=== PATIENT | female | born 1955 | race Caucasian/White ===

== ENCOUNTER → 2021-04-16 | Outpatient (CLI) | payer MEDICARE ==
[2021-04-25 09:07] LABS: 6-ACETYLMORPHINE Not Detected (.)
== END ==
LOC: LAB 10:23 → LAB SHORT 10:23
PROVIDERS: Family Medicine
DX: Z79.899 Other long term (current) drug therapy (principal)
CPT/HCPCS: G0480

== ENCOUNTER → 2021-11-30 | Outpatient (CLI) | payer MEDICARE ==
[~2021-11-30] MED LIST: HYDROCODONE-AC1 EAC7 PO; MORP15ER PO; Robaxin750 MG PO; TRAZ50 PO; [UNRECOGNIZED DRUG - CODE] PO
== END | disposition home or self-care (01) ==
LOC: LAB 16:14 → LAB SHORT 16:14
PROVIDERS: Family Medicine
DX: Z51.81 Encounter for therapeutic drug level monitoring (principal); Z79.899 Other long term (current) drug therapy
CPT/HCPCS: G0480

== ENCOUNTER → 2022-03-01 | Outpatient (CLI) | payer MEDICARE | END | disposition home or self-care (01) | LOC: LAB SHORT 14:55 → LAB 14:55 | PROVIDERS: Family Medicine | DX: Z51.81 Encounter for therapeutic drug level monitoring (principal); Z79.899 Other long term (current) drug therapy | CPT/HCPCS: G0480 ==

== ENCOUNTER 2022-03-20 11:14 | Emergency (ER) | payer MEDICARE ==
[~2022-03-20] VITALS: Ht 162.6 cm; Wt 72.6 kg
[2022-03-20] MEDS ORDERED: TRAZ50 PO (11:50)
[2022-03-20] MEDS ORDERED: [UNRECOGNIZED DRUG - CODE] PO (11:50)
[2022-03-20] MEDS ORDERED: HYDROCODONE-AC1 EAC7 PO (11:50)
[2022-03-20] MEDS ORDERED: Robaxin750 MG PO (13:36)
[2022-03-20] MEDS ORDERED: MORP15ER PO ×2 (13:36→13:37)
== END 2022-03-20 14:56 | disposition home or self-care (01) ==
LOC: ER 11:14
DX: M48.54XA Collapsed vertebra, not elsewhere classified, thoracic region, initial encounter for fracture (principal); Z87.891 Personal history of nicotine dependence; Z88.2 Allergy status to sulfonamides; Z88.1 Allergy status to other antibiotic agents
CPT/HCPCS: 72070; A9270; J1885; J2270

== ENCOUNTER → 2022-06-01 | Outpatient (CLI) | payer MEDICARE, OTHER | END | disposition home or self-care (01) | LOC: LAB SHORT 18:36 | PROVIDERS: Family Medicine | DX: Z51.81 Encounter for therapeutic drug level monitoring (principal); R30.9 Painful micturition, unspecified; Z79.899 Other long term (current) drug therapy | CPT/HCPCS: 87077; 87086; 87186; G0480 ==

== ENCOUNTER → 2022-09-20 | Outpatient (CLI) | payer MEDICARE, OTHER | END | disposition home or self-care (01) | LOC: LAB 13:50 → LAB SHORT 13:50 | PROVIDERS: Family Medicine | DX: Z51.81 Encounter for therapeutic drug level monitoring (principal); Z79.899 Other long term (current) drug therapy | CPT/HCPCS: G0480 ==

== ENCOUNTER → 2023-01-05 | Outpatient (CLI) | payer MEDICARE, OTHER | END | disposition home or self-care (01) | LOC: LAB SHORT 14:33 → LAB 14:33 | PROVIDERS: Family Medicine | DX: Z51.81 Encounter for therapeutic drug level monitoring (principal); Z79.899 Other long term (current) drug therapy | CPT/HCPCS: G0480 ==

== ENCOUNTER → 2023-03-01 | Outpatient (CLI) | payer MEDICARE, OTHER | END | disposition home or self-care (01) | LOC: LAB 17:40 → LAB SHORT 17:40 | PROVIDERS: Family Medicine | DX: Z51.81 Encounter for therapeutic drug level monitoring (principal); Z79.899 Other long term (current) drug therapy | CPT/HCPCS: G0480 ==

== ENCOUNTER → 2023-05-19 | Outpatient (CLI) | payer MEDICARE, OTHER ==
[~2023-05-19] MED LIST changes: +AZIT500 PO; +Acetaminophen325 M1 PO; +DULERA 100 MCG/13 GM INH; +PANT40 PO; +PRED20 PO; +Prednisone10 MG PO; +TRAZ100 PO; +Ventolin/Prove6.7 GM INH
== END ==
LOC: LAB SHORT 16:11 → LAB 16:11
PROVIDERS: Family Medicine
DX: Z51.81 Encounter for therapeutic drug level monitoring (principal); Z79.899 Other long term (current) drug therapy
CPT/HCPCS: G0480

== ENCOUNTER 2023-06-06 01:59 | Day surgery (SDC) | payer MEDICARE, OTHER ==
[2023-06-06 14:58] VITALS: BP 105/77
== END 2023-06-06 15:28 | disposition home or self-care (01) ==
LOC: ATC 01:59
DX: D50.9 Iron deficiency anemia, unspecified (principal); G89.29 Other chronic pain; K21.9 Gastro-esophageal reflux disease without esophagitis; J18.9 Pneumonia, unspecified organism
CPT/HCPCS: 96365; J1756

== ENCOUNTER 2023-06-28 01:42 | Day surgery (SDC) | payer MEDICARE, OTHER ==
[2023-06-28 14:18] VITALS: BP 127/91
== END 2023-06-28 13:59 | disposition home or self-care (01) ==
LOC: ATC 01:42
DX: D50.9 Iron deficiency anemia, unspecified (principal); G89.4 Chronic pain syndrome; K21.9 Gastro-esophageal reflux disease without esophagitis; M19.279 Secondary osteoarthritis, unspecified ankle and foot; Z79.899 Other long term (current) drug therapy; Z88.2 Allergy status to sulfonamides
CPT/HCPCS: 96365; J1756

== ENCOUNTER 2023-07-05 02:32 | Day surgery (SDC) | payer MEDICARE, OTHER ==
[2023-07-05 14:35] VITALS: BP 113/80
== END 2023-07-05 15:03 | disposition home or self-care (01) ==
LOC: ATC 02:32
DX: D50.9 Iron deficiency anemia, unspecified (principal); Z88.2 Allergy status to sulfonamides; Z88.1 Allergy status to other antibiotic agents; F41.9 Anxiety disorder, unspecified; F32.A Depression, unspecified; Z79.899 Other long term (current) drug therapy; G89.29 Other chronic pain; M54.50 Low back pain, unspecified
CPT/HCPCS: 96365; J1756

== ENCOUNTER 2023-08-14 10:03 | Emergency (ER) | payer MEDICARE, OTHER ==
[~2023-08-14] VITALS: Ht 162.6 cm; Wt 68.0 kg
[2023-08-14 10:52] LABS: Source, Urine Clean Catch
[2023-08-14 11:12] LABS: Appearance, Urine Cloudy (Clear); Bilirubin, Urine Neg (Neg); Blood, Urine 4+ (Neg); Color, Urine Yellow (P-Yellow); Glucose Qualitative, Urine Neg (Neg); Ketones, Urine Neg (Neg); Leukocyte Esterase, Urine 3+ (Neg); Nitrite, Urine Pos (Neg); Protein, Urine 2+ (Neg); Specific Gravity, Urine 1.015 (1.003-1.022); Urobilinogen, Urine 1+ (Normal); pH, Urine 6.5 (5.0-8.0)
[2023-08-14 11:23] LABS: Squamous Epithelial Cells Rare /hpf (Few)
[2023-08-14 11:24] LABS: White Blood Cells, Urine 25-50 /hpf (0-5)
[2023-08-14 11:25] LABS: Bacteria Mod /hpf; Transitional Epithelial Cells Rare /hpf (0-Rare)
[2023-08-14] MEDS ORDERED: NITR100CA PO (11:51)
[2023-08-14] MEDS ORDERED: PHENA200 PO (11:51)
[2023-08-14 12:05] VITALS: BP 111/86
== END 2023-08-14 12:07 | disposition home or self-care (01) ==
LOC: ER 10:03
PROVIDERS: Emergency Medicine
DX: N39.0 Urinary tract infection, site not specified (principal); M81.0 Age-related osteoporosis without current pathological fracture; Z87.891 Personal history of nicotine dependence; Z79.891 Long term (current) use of opiate analgesic; Z79.899 Other long term (current) drug therapy; Z88.2 Allergy status to sulfonamides
CPT/HCPCS: 81001; 87077; 87086; 87186; 99283; A9270

== ENCOUNTER → 2023-09-15 | Outpatient (CLI) | payer MEDICARE, OTHER ==
[~2023-09-15] MED LIST changes: +NITR100CA PO; +PHENA200 PO
== END ==
LOC: LAB SHORT 11:55 → LAB 11:55
DX: N30.10 Interstitial cystitis (chronic) without hematuria (principal)
CPT/HCPCS: 87077; 87086; 87186

== ENCOUNTER 2024-03-01 05:21 | Inpatient (IN) | payer MEDICARE, OTHER ==
[2024-03-01] VITALS (21 sets, daily range): BP systolic 78–127; BP diastolic 50–88
[~2024-03-01] VITALS: Ht 162.6 cm; Wt 75.6 kg
[2024-03-01] MEDS ORDERED: NS 1,000 ML IV SCH ×3 (06:20→18:50)
[2024-03-01 06:22] LABS: BASOPHILS ABSOLUTE AUTO 0.03 K/mm3 (0.00-0.23); BASOPHILS PERCENT AUTO 0 % (0-2); Hematocrit 37.9 % (33.0-51.0); Hemoglobin 11.8 g/dL (11.5-16.0); LYMPHOCYTES ABSOLUTE AUTO 0.77 K/mm3 (0.84-5.20); LYMPHOCYTES PERCENT AUTO 8 % (21-46); MONOCYTES ABSOLUTE AUTO 0.92 K/mm3 (0.16-1.47); MONOCYTES PERCENT AUTO 10 % (4-13); Mean Corpuscular HGB 28.8 pg (26.0-34.0); Mean Corpuscular HGB Conc 31.1 g/dL (31.5-36.5); Mean Corpuscular Volume 92 fL (80-100); Platelet Count 173 K/mm3 (150-400); RDW Coefficient Variation 13.2 % (11.7-14.2); RDW Standard Deviation 44.9 fL (35.1-46.3); White Blood Cell Count 9.17 K/mm3 (4.00-11.30)
[2024-03-01 06:25] LABS: EOSINOPHILS ABSOLUTE AUTO 0.01 K/mm3 (0.00-0.68); EOSINOPHILS PERCENT AUTO 0 % (0-6); IMMATURE GRAN ABSOLUTE AUTO 0.04 K/mm3 (0.00-0.10); IMMATURE GRAN PERCENT AUTO 0 % (0-1); NEUTROPHILS PERCENT AUTO 81 % (41-73)
[2024-03-01 06:45] LABS: Albumin, Blood 2.4 g/dL (3.4-5.0); Albumin/Globulin Ratio 0.5 (0.8-1.8); Bilirubin, Total 0.5 mg/dL (0.1-1.0); Bun/Creatinine Ratio 18.1 (12.0-20.0); Calcium, Blood 9.5 mg/dL (8.5-10.1); Creatinine, Blood 2.82 mg/dL (0.40-1.00); Globulin, Blood 4.5 g/dL (2.2-4.0); Potassium, Blood 3.2 mmol/L (3.5-5.5); Total Protein, Blood 6.9 g/dL (6.4-8.2)
[2024-03-01 07:15] LABS: BAND PERCENT MAN 5 % (0-8); BASOPHILS PERCENT MAN 0 % (0-2); EOSINOPHILS PERCENT MAN 0 % (0-6); LYMPHOCYTES ABSOLUTE MAN 1.28 K/mm3 (0.84-5.20); LYMPHOCYTES PERCENT MAN 14 % (21-46); MONOCYTES ABSOLUTE MAN 0.64 K/mm3 (0.16-1.47); MONOCYTES PERCENT MAN 7 % (4-13); NEUTROPHILS ABSOLUTE MAN 7.24 K/mm3 (1.96-9.15); SEG NEUTROPHILS PERCENT MAN 74 % (41-73); TOTAL CELLS COUNTED 100
[2024-03-01 08:31] LABS: Source, Urine Clean Catch
[2024-03-01 08:33] LABS: Appearance, Urine Hazy (Clear); Bilirubin, Urine Neg (Neg); Blood, Urine 5+ (Neg); Color, Urine Yellow (P-Yellow); Glucose Qualitative, Urine Neg (Neg); Ketones, Urine Neg (Neg); Leukocyte Esterase, Urine 3+ (Neg); Nitrite, Urine Pos (Neg); Protein, Urine 3+ (Neg); Urobilinogen, Urine NORM (Normal)
[2024-03-01 08:40] LABS: Bacteria Many /hpf; Squamous Epithelial Cells Few /hpf (Few); White Blood Cells, Urine TNTC /hpf (0-5)
[2024-03-01] MEDS ORDERED: HYDROcodone 10-APAP 325 TAB PO PRN (08:40)
[2024-03-01 08:45] LABS: U Amphetamine Screen Not Detected; U Barbituate Screen Not Detected; U Benzodiazapine Screen Not Detected; U Buprenorphine Screen Not Detected; U Cannabinoids Screen Not Detected; U Cocaine Screen Not Detected; U Methadone Screen Not Detected; U Methamphetamine Screen Not Detected; U Opiates Screen DETECTED; U Oxycodone Screen Not Detected; U Phencyclidine Screen Not Detected
[2024-03-01] MEDS ORDERED: Sertraline HCl 100 MG Tab PO SCH (09:00)
[2024-03-01] MEDS ORDERED: Mometasone Furoate Inhaler 220 mcg 14 ACT INH SCH (09:15)
[2024-03-01] MEDS ORDERED: NS 1,000 ML IV ONE (11:20)
[2024-03-01] MEDS ORDERED: Acetaminophen 325 MG TABLET PO PRN (11:20)
[2024-03-01] MEDS ORDERED: CefTRIAXone Sodium 1,000 MG in NS 100 ML IV SCH (12:00)
--- NOTE | 2024-03-01 15:23 | NUR ---
SPOKE WITH DR PANDYA ABOUT B/P 80/61, RETAKE 85/50. ORDERS TO BOLUS ANOTHER 500 ML'S NS.
[2024-03-01] MEDS ORDERED: NS 500 ML IV ONE ×2 (15:30→15:55)
--- NOTE | 2024-03-01 16:38 | NUR ---
B/P AFTER 1000 ML BOLUS IS 86/56. PATIENT FEELING VERY UNWELL WITH HEADACHE AND DIZZINESS. SR ON TELE IN THE 8O'S, TEMP NOW WNL. DR PANDYA NOTIFIED AND ORDERS RECEIVED TO TRANSFER PATIENT TO ICU. CHARGE NURSE NOTIFIED.
--- NOTE | 2024-03-01 17:30 | NUR ---
PATIENT TRANSFERRED FROM [facility] TO ICU 3, REPORT CALLED TO AVA.
--- NOTE | 2024-03-01 17:34 | NUR ---
LACIE ARRIVED TO ICU-3 AT 1720 WITH TIRN AND CPT CLARK. PT ALERT AND ORIENTED, ANSWERING QUESTIONS, ASKING FOR WATER AND FOOD. PT'S BP MAP >65 AT THIS TIME. TEMP 96.5, HEART RATE SINUS 80'S. LUNGS CLEAR AFTER BOLUSES OF FLUID, SKIN WARM/DRY. MEADOWS TO GRAVITY DRAINAGE WITH JÚNIOR RETURN.
--- NOTE | 2024-03-01 18:51 | NUR ---
PT TOOK IN SOME FOOD, C/O BEING COLD, WARM BLANKETS AND SLIPPERS GIVEN. SCD'S PLACED. PT DOZES IN AND OUT. IV FLUIDS CONTINUE,LEVOPHED HAS NOT BEEN STARTED YET. AVAILABLE. PT HAS CALL LIGHT IN REACH.
--- NOTE | 2024-03-01 19:17 | NUR ---
PT INSISTENT ON GETTING UP TO THE BSC, SHE IS SLIGHTLY UNSTEADY, NEEDS GUIDANCE. VERY SHORT OF BREATH ON RETURN, ASKED FOR HER "BREATHER IN HER PURSE".
[2024-03-01] MEDS ORDERED: Ipratropium/Albuterol SulF 2.5-0.5MG/3 ML Amp INH SCH (19:35)
[2024-03-01] MEDS ORDERED: Albuterol 2.5 MG/3 ML VIAL INH PRN (19:35)
--- NOTE | 2024-03-01 20:00 | NUR ---
ASSUMED CARE OF PT AT 1900. REPORT RECEIVED AT BEDSIDE. PT PRESENTS IN BED. SLEEPING ALTHOUGH AWAKENS WITH REPORT BEING GIVEN. INTERJECTS WHEN DISCUSSING WHAT PT TAKES AT HOME FOR PAIN IN KNEE. EDUCATION TO MEDS GIVEN TO PT. PT REMAINS OFF LEVOPHED AT THIS TIME. HAS BEEN MAINTAINING MAP > 65. WILL MONITOR. PT HAS NO COMPLAINTS OF VERTIGO AT THIS TIME. IS ABLE TO MOVE ABOUT IN BED ON HER. WILL REVIEW CHART AND PLAN OF CARE FOR THIS PT.
[2024-03-02] VITALS (21 sets, daily range): BP systolic 90–130; BP diastolic 60–88
[2024-03-02 03:29] LABS: Hematocrit 30.8 % (33.0-51.0); Hemoglobin 9.8 g/dL (11.5-16.0); Mean Corpuscular HGB 29.4 pg (26.0-34.0); Mean Corpuscular HGB Conc 31.8 g/dL (31.5-36.5); Mean Corpuscular Volume 93 fL (80-100); Mean Platelet Volume 9.9 fL (9.1-12.4); Platelet Count 155 K/mm3 (150-400); RDW Coefficient Variation 13.6 % (11.7-14.2); RDW Standard Deviation 46.9 fL (35.1-46.3); Red Blood Cell Count 3.33 M/mm3 (3.80-5.20)
[2024-03-02 03:48] LABS: Albumin, Blood 1.7 g/dL (3.4-5.0); Albumin/Globulin Ratio 0.5 (0.8-1.8); Bilirubin, Total 0.5 mg/dL (0.1-1.0); Bun/Creatinine Ratio 22.5 (12.0-20.0); Calcium, Blood 8.2 mg/dL (8.5-10.1); Creatinine, Blood 1.78 mg/dL (0.40-1.00); Globulin, Blood 3.7 g/dL (2.2-4.0); Potassium, Blood 3.2 mmol/L (3.5-5.5); Total Protein, Blood 5.4 g/dL (6.4-8.2)
[2024-03-02 03:49] LABS: BAND PERCENT MAN 17 % (0-8); BASOPHILS PERCENT MAN 0 % (0-2); EOSINOPHILS PERCENT MAN 0 % (0-6); LYMPHOCYTES PERCENT MAN 8 % (21-46); MONOCYTES ABSOLUTE MAN 0.79 K/mm3 (0.16-1.47); MONOCYTES PERCENT MAN 9 % (4-13); SEG NEUTROPHILS PERCENT MAN 66 % (41-73); TOTAL CELLS COUNTED 100
[2024-03-02] MEDS ORDERED: Potassium Chloride 40 MEQ in NS 250 ML IV ONE (05:00)
--- NOTE | 2024-03-02 05:20 | NUR ---
PT HAS BEEN MEDICATED AGAIN WITH TYLENOL FOR LOW GRADE FEVER OF 100.9. PT MOVES HERSELF INDEPENDENTLY IN BED. HAS HAD QUANTITY SUFFICIENT URNINE OUTPUT PER CATHETER. POTASSIUM BEING REPLETED THIS AM FOR VALUE OF 3.2. PT HAS VOICED NO COMPLAINTS THROUGHOUT THE NIGHT. WILL CONTINUE TO MONITOR PT, AND WILL REPORT OFF TO ONCOMING RN.
[2024-03-02] MEDS ORDERED: Pantoprazole Sodium 40 MG Tab PO SCH (06:00)
--- NOTE | 2024-03-02 08:25 | NUR ---
ASSUMED CARE BEDSIDE REPORT FROM ROGER CARLSON AT 0700. PT RESTING IN BED. A&O X 4. FOLLOWS COMMANDS. C/O AMAYA, 04/03. MEDICATED c TYLENOL ORDERED. LUNGS CLEAR, ON RA. SR, RATE 90'S. BP STABLE. PT P/W/D. IVF AND KCL INFUSING. ABD ROUND, SOFT, NON TENDER, BT X 4. TOLERATING PO WELL. MEADOWS REMOVED, STANDBY ASSIST TO JESUS IN ROOM. PT PCU STATUS. WILL CONTINUE PLAN OF CARE.
[2024-03-02] MEDS ORDERED: Midodrine 5 MG Tab PO SCH (09:00)
[2024-03-02] MEDS ORDERED: Heparin Sodium,Porcine 5,000 UNIT/0.5 ML SDV SC SCH (09:00)
--- NOTE | 2024-03-02 17:36 | NUR ---
SHIFT SUMMARY NO ACUTE CHANGES. PT PCU STATUS. A&OX 4. FOLLOWS COMMANDS. ABLE TO MAKE NEEDS KNOWN. LUNGS CLEAR. SR, RATE 90-100'S. BP STABLE. AFEBRILE. ABD ROUND, SOFT, NON TENDER, BT X 4. POOR APPETITE. DISLIKES FOOD. ENCOURAGED MENU SELECTION. MEADOWS REMOVED, URINARY URGENCY, INCONTINENT VOIDS. ATTENDS IN PLACE. STANDBY ASSIST TO JESUS IN ROOM. IVF INFUSING, 125 ML/HR. WILL CONTINUE PLAN OF CARE UNTIL REPORT TO ONCOMING NURSE.
--- NOTE | 2024-03-02 20:00 | NUR ---
ASSUMED CARE OF PT AT 1900. REPORT RECEIVED AT BEDSIDE. PT PRESENTS IN BED. ALERT AND ORIENTED. PLEASANT AND COOPERATIVE WITH CARE AND ASSESSMENT. NO COMPLAINTS AT THIS TIME. TEM 99.3. PT KEEPS EXTRA BLANKETS ON BED. WILL REVIEW CHART AND PLAN OF CARE FOR THIS PT.
--- NOTE | 2024-03-02 23:39 | NUR ---
PT MEDICATD WITH TYLENOL FOR COMPLAINT HEADACHE. THIS AFFECTIVE. PT HAS BEEN INDEPENDENT IN BED AND WHEN UP NEEDS SOME ASSIST WITH CORDS.
[2024-03-03] VITALS (7 sets, daily range): BP systolic 109–142; BP diastolic 71–85
[2024-03-03 03:51] LABS: BASOPHILS ABSOLUTE AUTO 0.05 K/mm3 (0.00-0.23); BASOPHILS PERCENT AUTO 1 % (0-2); EOSINOPHILS ABSOLUTE AUTO 0.06 K/mm3 (0.00-0.68); EOSINOPHILS PERCENT AUTO 1 % (0-6); Hematocrit 32.6 % (33.0-51.0); Hemoglobin 10.3 g/dL (11.5-16.0); IMMATURE GRAN ABSOLUTE AUTO 0.14 K/mm3 (0.00-0.10); IMMATURE GRAN PERCENT AUTO 1 % (0-1); LYMPHOCYTES ABSOLUTE AUTO 1.25 K/mm3 (0.84-5.20); LYMPHOCYTES PERCENT AUTO 12 % (21-46); MONOCYTES ABSOLUTE AUTO 1.02 K/mm3 (0.16-1.47); MONOCYTES PERCENT AUTO 10 % (4-13); Mean Corpuscular HGB 29.5 pg (26.0-34.0); Mean Corpuscular HGB Conc 31.6 g/dL (31.5-36.5); Mean Corpuscular Volume 93 fL (80-100); Mean Platelet Volume 10.1 fL (9.1-12.4); NEUTROPHILS ABSOLUTE AUTO 8.23 K/mm3 (1.96-9.15); NEUTROPHILS PERCENT AUTO 77 % (41-73); Platelet Count 172 K/mm3 (150-400); RDW Coefficient Variation 14.4 % (11.7-14.2); Red Blood Cell Count 3.49 M/mm3 (3.80-5.20); White Blood Cell Count 10.75 K/mm3 (4.00-11.30)
[2024-03-03 04:23] LABS: Albumin, Blood 1.7 g/dL (3.4-5.0); Albumin/Globulin Ratio 0.4 (0.8-1.8); Bilirubin, Total 0.5 mg/dL (0.1-1.0); Bun/Creatinine Ratio 21.8 (12.0-20.0); Calcium, Blood 9.2 mg/dL (8.5-10.1); Creatinine, Blood 1.47 mg/dL (0.40-1.00); Potassium, Blood 3.8 mmol/L (3.5-5.5); Total Protein, Blood 5.7 g/dL (6.4-8.2)
--- NOTE | 2024-03-03 06:07 | NUR ---
SHIFT SUMMARY PATIENT ARRIVED FROM ICU THIS SHIFT. ALERT AND ORIENTED, COOPERATIVE WITH CARE, ABLE TO APPROPRIATELY EXPRESS NEEDS. CALL LIGHT WITHIN REACH. SHE COMPLAINS OF GENERALIZED BODY ACHES THROUGHOUT, TREATED WITH PAIN MEDS PER ORDERS, PLEASE SEE MAR FOR DETAILS. TMAX UNDER THIS RN'S CARE WAS 100.3F. BP STABLE. SR ON TELE 80'S - 90'S. IVF INFUSING PER ORDERS. CR TRENDING DOWN. PATIENT APPEARED TO REST COMFORTABLY THROUGH THE NIGHT, EVEN CHEST RISE AND FALL. NO ACUTE EVENTS.
[2024-03-03] MEDS ORDERED: CefTRIAXone Sodium 2,000 MG in NS 100 ML IV SCH (09:00)
--- NOTE | 2024-03-03 10:56 | NUR ---
PT HAS BEEN RESTING WELL T/O THE DAY. SHE IS ALERT, ORIENTED TO PERSON, PLACE, TIME. DENIES CP OR SOB. EVEN NON LABORED RESPIRATIONS NOTED, SHE IS ON ROOM AIR WITH SPO2 >94%. SR NOTED ON MONITOR. SHE REMAINS INCONTINENT, IS ABLE TO CHANGE ATTENDS INDEPENDANTLY. SHE REPORTS THAT HER PAIN IS WELL CONTROLLED AT THIS TIME. A-FEBRILE THIS AM. SHE IS ABLE TO TAKE MEDICATIONS WHOLE WITH WATER. ABLE TO ROLL SELF IN BED. SHE HAS DENIED ANY NEEDS T/O THE DAY. VSS
--- NOTE | 2024-03-03 17:24 | NUR ---
PT HAS SLEPT FOR A MAJORITY OF THE DAY. MAPs HAVE BEEN ABOVE 80 FOR THE DAY, MIDODRINE WAS HELD, PT DOES NOT TAKE AT HOME. VSS. SHE REPORTS THAT SHE HAS NOT FELT WELL ENOUGHT TO GO HOME TODAY AND WAS GLAS THAT SHE WAS ABLE TO STAY ANOTHER DAY. SHE HAS HAD A GOOD APPETITE FOR THE DAY. SHE HAS SEVERAL VOIDS IN ATTENDS, AND WAS INCONINENT OF STOOL WHILE ATTEMPTING TO GET TO THE BATHROOM.
[2024-03-04 00:09] VITALS: BP 122/86
[2024-03-04 03:50] LABS: BASOPHILS ABSOLUTE AUTO 0.04 K/mm3 (0.00-0.23); BASOPHILS PERCENT AUTO 0 % (0-2); EOSINOPHILS ABSOLUTE AUTO 0.23 K/mm3 (0.00-0.68); EOSINOPHILS PERCENT AUTO 2 % (0-6); Hematocrit 29.6 % (33.0-51.0); Hemoglobin 9.5 g/dL (11.5-16.0); IMMATURE GRAN ABSOLUTE AUTO 0.33 K/mm3 (0.00-0.10); IMMATURE GRAN PERCENT AUTO 4 % (0-1); LYMPHOCYTES ABSOLUTE AUTO 1.59 K/mm3 (0.84-5.20); LYMPHOCYTES PERCENT AUTO 17 % (21-46); MONOCYTES ABSOLUTE AUTO 0.91 K/mm3 (0.16-1.47); MONOCYTES PERCENT AUTO 10 % (4-13); Mean Corpuscular HGB 29.7 pg (26.0-34.0); Mean Corpuscular HGB Conc 32.1 g/dL (31.5-36.5); Mean Corpuscular Volume 93 fL (80-100); Mean Platelet Volume 10.1 fL (9.1-12.4); NEUTROPHILS ABSOLUTE AUTO 6.35 K/mm3 (1.96-9.15); NEUTROPHILS PERCENT AUTO 67 % (41-73); Platelet Count 180 K/mm3 (150-400); RDW Coefficient Variation 14.6 % (11.7-14.2); RDW Standard Deviation 50.4 fL (35.1-46.3); White Blood Cell Count 9.45 K/mm3 (4.00-11.30)
[2024-03-04 04:22] LABS: Bun/Creatinine Ratio 23.3 (12.0-20.0); Calcium, Blood 8.5 mg/dL (8.5-10.1); Creatinine, Blood 1.16 mg/dL (0.40-1.00); Potassium, Blood 3.3 mmol/L (3.5-5.5)
[2024-03-04 04:55] VITALS: BP 140/89
--- NOTE | 2024-03-04 05:03 | NUR ---
SHIFT SUMMARY NO ACUTE EVENTS T/O NIGHT. NS AT 125ML/HR. PT A/O X 4. CALM AND COOPERATIVE WITH CARE. C/O HEADACHE AND REQUESTED TYLENOL. MEDICATED PER EMAR. VSS. ON RA WITH SPO2 GREATER THEN 92. PT INCONT OF URINE AND PUREWICK IN PLACE. YELLOW/JÚNIOR OUTPUT. WILL REPORT OFF TO DAY RN.
[2024-03-04] MEDS ORDERED: Lactobacil 2-S.Thermo-Bifido 1 1 Cap PO SCH (09:00)
[2024-03-04 09:35] VITALS: BP 147/97
[2024-03-04] MEDS ORDERED: HYDROcodone 10-APAP 325 TAB PO PRN (09:40)
--- NOTE | 2024-03-04 11:04 | NUR ---
AT 0930 PT REPORTED THAT SHE HAD A HEADACHE, THIS RN TO ROOM TO ASSESS HEADACHE. SHE WAS GIVEN TYLENOL LAST NOC FOR HEADACHE. WHEN ASKED HOW WELL TYLENOL RESOLVED HEADACHE SHE STATES "WELL YEAH IT DID BECAUSE I HAD NORCO WITH IT" PT EDUCATED THAT SHE WAS NOT GIVEN NORCO WITH HER TYLENOL LAST NIGHT SHE STS "I KNOW BUT I TOOK MINE" WHEN SHE WAS ASKED TO ELABORATE SHE STS "I ALWAYS KEEP IT HIDDEN WHEN I COME HERE BECAUSE THE NURSES DON'T GIVE ME ENOUGH NORCO WHEN I'M HERE" SHE REFUSES TO GIVE HER CONCEALED MEDCIATIONS TO THIS RN TO LOCK, DR HUGHES WAS UPDATED THAT PT HAS BEEN MEDCIATING SELF AT WILL WITH CONCEALED NORCO. DR HUGHES WAS IN TO SEE PT, SHE AGREED THAT SHE WOULD GIVE THE MEDICATIONS OVER TO BE LOCKED. SHE GAVE THIS RN THE CONCEALED NORCO AT 0945 , SHE REPORTS THAT SHE MAY HAVE TAKEN ONE AN HOUR AGO. SHE IS UPDATED THAT SHE WILL BE ABLE TO HAVE MEDCIATIONS SAFELY PASSED IN 4 HOURS AFTER SHE HAS GIVEN ME THE NORCO THAT SHE HAD IN HER POSSESSION I CAN NOT REVIFY WHEN SHE TOOK HER LAST DOSE
--- NOTE | 2024-03-04 11:40 | NUR ---
PT ARRIVED TO ROOM 332 AT 1130 AOX4. NO DISTRESS NOTED CALL LIGHT WITHIN. PT REQUESTED PAIN MEDS AND WAS REINFORMED SHE IS NOT DUE TILL 1330 PER REPORT. REPORT WAS REVIEVED PRIOR TO TRANSFER. CALL LIGHT IS WITHIN REACH WILL CONTINUE TO MONITOR.
--- NOTE | 2024-03-04 12:07 | NUR ---
AT 0945 PT WAS EDUCATED THAT MEDICATION WILL BE REMOVED AND LOCKED THIS WILL AVOID THE POTENTIAL OF OVERDOSE SO THAT NURSING STAFF IS NOT MEDICATING HER AND SHE IS ALSO MEDCIATING HERSELF. SHE EXPRESSED UNDERSTANDING SHE STATES THAT SHE IS CONCERNED THAT "I WILL BE FLAGGED AN ADDICT", SHE IS EDUCATED THAT THIS WILL BE DOCUMENTED THAT SHE WAS CONCEALING NARCOTICS IN HER BELONGINGS AND TAKING THEM WITHOUT STAFF'S KNOWLEDGE. DR HUGHES IS AWARE OF THIS, YOVANNY LISA THE NURSING EGG BREAKING MACHINE OPERATOR IS ALSO NOTIFIED OF THIS SITUATION. PT'S NORCO WAS PLACED IN GREEN BAG, PATIENT LABEL WAS PLACED OVER THE OPENING OF BAG AND LOCKED IN HER MEDICATION DRAWER. SHE WAS EDUCATED AT 0945 THAT SHE CAN BE MEDCIATED AGAIN IN 4 HOURS THIS WAS TIME THAT THE MEDCIATIONS WERE REMOVED FRO HER POSSESSION. SHE IS EDUCATED THAT THIS WILL BE THE START TIME I CAN NOT VERIFY WHEN SHE TOOK THE LAST DOSE OF NORCO THAT SHE HAD CONCEALED IN HER PURSE
--- NOTE | 2024-03-04 12:12 | NUR ---
TYLER REPORT CALLED TO FLY ARELLANO ON MEDICAL FLOOR. FLY IS MADE AWARE OF THE SITUATION WITH PT TAKING MEDICATIONS THAT SHE HAD CONCEALED IN HER BELONGINGS. SHE IS AWARE ALSO THAT THE NORCO WAS REMOVED FROM PATIENT'S POSSESSION AT 0945 AND THAT PATIENT WAS EDUCATED THAT SHE COULD BE MEDICATED 4 HOURS FROM THE TIME THE NORCO WAS REMOVED FROM HER POSSESSION. NORCO WAS DELIVERED TO FLY TO BE LOCKED WHERE PT DOES NOT HAVE ACCESS TO IT.
--- NOTE | 2024-03-04 12:14 | NUR ---
AT 1140 PT WAS AND ALL BELONGINGS WERE BEING PACKED FOR TRANSFER TO ROOM 332. PT ASKED SENIOR NETWORK ARCHITECT ABOUT HAVING NORCO BEFORE LEAVING. THIS RN TO ROOM TO DISCUSS NORCO ADMINISTRATION WITH HER, I REMINDED HER THAT NORCO CAN BE ADMINISTERED AT 1345 WHICH IS 4 HOURS FROM WHEN I TOOK POSSESSION OF HER CONCEALED NORCO. SHE STS "MY DOCTOR SAID I COULD HAVE IT WHEN I NEED IT" SHE IS REMINDED ABOUT THE EDUCATION THAT WAS PROVIDED AT 0945 SHE TURNS TO HER S/O AT THE BEDSIDE AND STS "THIS IS WHY I DIDN'T TELL HER AND I NEVER SHOULD HAVE GAVE HER THE PILLS TO LOCK UP". STS "I WON'T DO THAT AGAIN" AND REPORTS "I KNOW YOU CAN'T SEARCH MY BELONGINGS WHEN I COME IN" IT SHOULD BE NOTED THAT WHEN THEN RN TOOK POSSESSION OF HER NORCO, SHE HAD THE NORCO CONCEALED BENEATH ITEMS IN HER PURSE.
[2024-03-04 16:30] VITALS: BP 137/83
--- NOTE | 2024-03-04 16:51 | NUR ---
PT AOX4 AND COOPERATIVE OF CARE. PT HAS BEEN TREATED FOR PAIN PER EMAR. PT RESTING QUIETLY IN BED. PT USING CALL LIGHT NEEDED NO DISTRESS NOTED. PERWICK IN PLACE PER PT REQUEST. PT IS A ONE PERSON STANDBY WITH WALKER. CALL LIGHT WITHIN REACH WILL CONTINUE TO MONITOR.
[2024-03-04] MEDS ORDERED: Potassium Chloride 20 MEQ TabCR PO ONE (17:00)
[2024-03-04 19:13] VITALS: BP 140/80
[2024-03-04] MEDS ORDERED: TraZODone HCl 100 MG Tab PO ONE (21:50)
[2024-03-05 05:15] VITALS: BP 142/82
[2024-03-05 05:27] LABS: Hematocrit 31.1 % (33.0-51.0); Hemoglobin 9.7 g/dL (11.5-16.0); Mean Corpuscular HGB Conc 31.2 g/dL (31.5-36.5); Mean Corpuscular Volume 93 fL (80-100); Mean Platelet Volume 10.1 fL (9.1-12.4); Platelet Count 225 K/mm3 (150-400); RDW Standard Deviation 51.4 fL (35.1-46.3); Red Blood Cell Count 3.34 M/mm3 (3.80-5.20); White Blood Cell Count 10.25 K/mm3 (4.00-11.30)
[2024-03-05 05:47] LABS: Anion Gap 10 mmol/L (3-11); Blood Urea Nitrogen 21 mg/dL (8-24); CO2, Blood 20 mmol/L (21-32); Chloride, Blood 120 mmol/L (98-108); Creatinine, Blood 1.08 mg/dL (0.40-1.00); Glucose, Blood 92 mg/dL (70-99); Potassium, Blood 3.4 mmol/L (3.5-5.5); Sodium, Blood 147 mmol/L (136-145)
[2024-03-05 05:48] LABS: Albumin, Blood 1.5 g/dL (3.4-5.0); Bun/Creatinine Ratio 19.4 (12.0-20.0); Glomerular Filtration Rate 56 (60-); Phosphorus, Blood 2.8 mg/dL (2.5-4.9)
--- NOTE | 2024-03-05 06:19 | NUR ---
SHIFT SUMMARY ADMITTED FOR ACUTE RENAL FAILURE, UTI/SEPSIS. FULL CODE. ANTIB RX ARE SCHEDULED. WILL DC HOME WHEN STABLE. PAIN MEDICATION GIVEN THIS SHIFT. HOME TRAZODONE ORDERED THIS SHIFT AT PT'S REQUEST. PUREWICK IN PLACE. REGULAR DIET. CONTINENT/INCONTINENT. 1 ASSIST W/FWW - BRP. ON RA. NS INFUSING ORDERED.
[2024-03-05 06:41] LABS: BAND PERCENT MAN 8 % (0-8); BASOPHILS PERCENT MAN 0 % (0-2); EOSINOPHILS PERCENT MAN 1 % (0-6); LYMPHOCYTES ABSOLUTE MAN 0.71 K/mm3 (0.84-5.20); LYMPHOCYTES PERCENT MAN 7 % (21-46); METAMYELOCYTE PERCENT MAN 1 % (0-0); MONOCYTES PERCENT MAN 3 % (4-13); MYELOCYTE PERCENT MAN 1 % (0-0); NEUTROPHILS ABSOLUTE MAN 8.91 K/mm3 (1.96-9.15); SEG NEUTROPHILS PERCENT MAN 79 % (41-73); TOTAL CELLS COUNTED 100
[2024-03-05 07:12] VITALS: BP 134/76
[2024-03-05] MEDS ORDERED: Potassium Chloride 20 MEQ/15 ML UDC PO ONE (08:00)
[2024-03-05 14:36] VITALS: BP 145/83
--- NOTE | 2024-03-05 19:38 | NUR ---
DAY SHIFT SUMMARY: A&Ox4. PLEASANT AND COOPERATIVE WITH CARE. CALLS APPROPRIATELY AND IS ABLE TO COMMUNICATE NEEDS EFFECTIVELY. MEDICATED PRN PAIN X2 FOR GENERALIZED PAIN. PUREWICK FOR URINARY URGENCY AND OVERFLOW INCONTINENCE. ANTICIPATE DC TOMORROW. REPORT TO ONCOMING RN.
[2024-03-05 19:47] VITALS: BP 149/83
[2024-03-05 19:48] VITALS: BP 149/83
[2024-03-05] MEDS ORDERED: Ciprofloxacin 500 MG Tab PO SCH (21:00)
[2024-03-05] MEDS ORDERED: TraZODone HCl 100 MG Tab PO SCH (21:00)
[2024-03-06] MEDS ORDERED: Ondansetron HCl 2 MG / ML 2ML Vial IV PRN (00:05)
[2024-03-06 04:19] VITALS: BP 116/77
[2024-03-06 05:58] LABS: Bun/Creatinine Ratio 20.1 (12.0-20.0); Calcium, Blood 8.9 mg/dL (8.5-10.1); Creatinine, Blood 0.9 mg/dL (0.40-1.00); Potassium, Blood 3.4 mmol/L (3.5-5.5)
--- NOTE | 2024-03-06 06:07 | NUR ---
SUMMARY: PT A/OX4, CALLS APPROPRIATELY TO SPECIFY NEEDS AND IS PLEASANT AND COOPERATIVE W/CARE. SHE WAS SL'D AND 1ST DOSE ORAL ABX WERE RECEIVED IN ANTICIPATION OF D/C TODAY. SHE REPORTS DRINKING "LOTS OF LIQUIDS" BUT C/O "NAGGING NAUSEA FOR DAYS FROM UTI". WAS NOTIFIED W/ZOFRAN RX'D AND RECEIVED FOR GOOD EFFECT. SHE WAS ALSO GIVEN NORCO PRN FOR TOLERABLE RELIEF OF L.HIP AND LEG PAIN. PUREWIC REMAINS IN PLACE D/T URINARY URGENCY W/FREQUENCY AND PT REPOSITIONED SELF IN BED T/O NOCTE. NO ACUTE CHANGES, VSS/AFEBRILE. WCTM AND REPORT TO DAY RN.
[2024-03-06 07:48] VITALS: BP 132/78
[2024-03-06] MEDS ORDERED: Potassium Chloride 20 MEQ TabCR PO SCH (09:00)
[2024-03-06] MEDS ORDERED: ALBU90OI INH (12:11)
[2024-03-06] MEDS ORDERED: CIPR750 PO (12:13)
[2024-03-06] MEDS ORDERED: ASMANEX220 M14 INH (12:16)
[2024-03-06] MEDS ORDERED: POTCHL20ER PO (12:17)
[2024-03-06] MEDS ORDERED: ONDA4 PO (12:17)
[2024-03-06] MEDS ORDERED: VISBIOME 112.51 EACH PO (12:18)
--- NOTE | 2024-03-06 14:11 | NUR ---
SHIFT SUMMARY: NO NEW CHANGES IN PATIENT PATIENT CONDITION. PATIENT A/OX4, PLEASANT AND COOPERATIVE c CARE. PATIENT REPORTS PAIN 9/10 TO L KNEE, MEDICATED c PRN PO PAIN MEDS c GOOD EFFECT. PATIENT REPORTS "OVERALL FEELING BETTER AND READY TO GO HOME. PATIENT REFUSED AM/PM HEPARIN DOSE. VITAL SIGNS REVIEWED. PIV TO L FOREARM DC'D. PATIENT HAS NO COMPLAINTS OR DENIES NEW CONCERNED, WHEN ASKED T/O THE DAY. PATIENT DISCHARGE HOME. DISCHARGE INSTRUCTIONS PACKET GIVEN TO PATIENT. EDUCATE PATIENT REGARDING ADMITTING DX'S OF ACUTE RENAL FAILURE, S/S, TX, NEW PRESCRIBED RX AND TO F/U c PCP. PATIENT VERBALIZED UNDERSTANDING AND NO FURTHER QUESTIONS. RX WAS FAXED TO PATIENT PREF[facility]ED [facility]. ALL PATIENT PERSONNAL BELLONGINGS INCLUDING HOME MEDS NORCO WERE SENT HOME c THE PATIENT. PATIENT LEFT THE ROOM AT 1410 AND WAS TRANSPORTED VIA WHEELCHAIR BY BABY COUNSELOR STAFF TO PATIENT ENTRANCE.
== END 2024-03-06 14:20 | disposition home or self-care (01) | DRG 872 ==
LOC: ER 05:21 → ERHOLD 05:22 → MEDS 12:49 → ICUE 17:37 → MEDS 03-02 12:40 → ICUE 03-02 12:40 → PCU 03-03 00:54 → MEDS 03-04 11:26 → ENPENDDIS 03-06 11:18 → MEDS 03-06 14:20
PROVIDERS: Emergency Medicine; Family Medicine; ADMIT Internal Medicine
PROC: 3E03329 Introduction of Other Anti-infective into Peripheral Vein, Percutaneous Approach (ICD-10-PCS; principal; 2024-03-01)
PROC: 0T9B70Z Drainage of Bladder with Drainage Device, Via Natural or Artificial Opening (ICD-10-PCS; 2024-03-01)
DX: A41.51 Sepsis due to Escherichia coli [E. coli] (principal); N39.0 Urinary tract infection, site not specified; N17.9 Acute kidney failure, unspecified; R65.20 Severe sepsis without septic shock; J44.9 Chronic obstructive pulmonary disease, unspecified; G89.4 Chronic pain syndrome; F41.9 Anxiety disorder, unspecified; F32.A Depression, unspecified; E87.6 Hypokalemia; G47.00 Insomnia, unspecified; K21.9 Gastro-esophageal reflux disease without esophagitis; I95.9 Hypotension, unspecified; Z87.891 Personal history of nicotine dependence; Z88.2 Allergy status to sulfonamides; Z79.891 Long term (current) use of opiate analgesic; Z91.81 History of falling
CPT/HCPCS: 36415; 51702; 71045; 76770; 80048; 80053; 80069; 81001; 82570; 83605; 84300; 85025; 87040; 87077; 87086; 87186; 93005; 93010; 94640; 94664; 94760; 94762; 96361; 96361-59; 96365; 96366; 96372; 96374-59; 99285-25; A9270; G0378; J0696; J1644; J3480; J7030; J7040; J7050

== ENCOUNTER → 2024-06-27 | Outpatient (CLI) | payer MEDICARE, OTHER ==
[~2024-06-27] MED LIST changes: +ALBU90OI INH; +ASMANEX220 M14 INH; +CIPR750 PO; +ONDA4 PO; +POTCHL20ER PO; +VISBIOME 112.51 EACH PO
== END | disposition home or self-care (01) ==
LOC: LAB SHORT 12:01 → LAB 12:01
DX: N39.0 Urinary tract infection, site not specified (principal)
CPT/HCPCS: 87077; 87086; 87186

== ENCOUNTER → 2024-07-09 | Outpatient (CLI) | payer MEDICARE, OTHER ==
[2024-07-12 20:33] LABS: 6-ACETYLMORPHINE, URN, QUANT <10 ng/mL; CODEINE, URN, QUANT <20 ng/mL; HYDROCODONE, URN, QUANT 2522 ng/mL; HYDROMORPHONE, URN, QUANT 181 ng/mL; MORPHINE, URN, QUANT <20 ng/mL; NORHYDROCODONE, URN, QUANT >4000 ng/mL; NOROXYCODONE, URN, QUANT <20 ng/mL; NOROXYMORPHONE, URN, QUANT <20 ng/mL; OXYCODONE, URN, QUANT <20 ng/mL; OXYMORPHONE, URN, QUANT <20 ng/mL
== END ==
LOC: LAB 16:29 → LAB SHORT 16:29
PROVIDERS: Family Medicine
DX: Z51.81 Encounter for therapeutic drug level monitoring (principal); Z79.899 Other long term (current) drug therapy
CPT/HCPCS: G0480

== ENCOUNTER → 2024-09-30 | Outpatient (CLI) | payer MEDICARE, OTHER | LOC: LAB SHORT 16:08 → LAB 16:08 | DX: N39.0 Urinary tract infection, site not specified (principal) | CPT/HCPCS: 87086 ==

== ENCOUNTER → 2024-10-07 | Outpatient (CLI) | payer MEDICARE, OTHER | LOC: LAB 14:33 → LAB SHORT 14:33 | DX: R30.0 Dysuria (principal) | CPT/HCPCS: 87086 ==

== ENCOUNTER 2024-12-18 12:28 | Day surgery (SDC) | payer MEDICARE, OTHER ==
[~2024-12-18] VITALS: Ht 162.6 cm; Wt 69.4 kg
[~2024-12-18 12:28] MED LIST changes: +Lactated Ringer's 1,000 ML IV ONE; +propofoL 50 ML IV ONE
[2024-12-18] MEDS ORDERED: QVAR REDIHALE10.6 G3 (13:34)
[2024-12-18] MEDS ORDERED: OMEPRAZOLE MAGN20 MG (13:35)
[2024-12-18] MEDS ORDERED: Lactated Ringer's 1,000 ML IV ONE (14:53)
--- NOTE | 2024-12-18 14:55 | NUR ---
12/18/24 3589 Itzel Blanco PT. VERBALIZES ALWAYS HAS PAIN IN HER KNEE RATING "6".
[2024-12-18] MEDS ORDERED: Glycopyrrolate 0.2 MG/ML 1MLVIAL ONE ×2 (15:45→16:09)
[2024-12-18 16:28] VITALS: BP 130/92
--- NOTE | 2024-12-18 16:44 | NUR ---
12/18/24 1644 Itzel Blanco S DURING UPPER AFTER DOSES OF 40MG IV PROPOFOL & 30MG IV PROPOFOL (SEE ENDO MAR) PT. SATS DOWN TO 86%. JAW THRUST PERFORMED & O2 UP TO 5L/NC. SATS CAME UP TO 90-97% ON 5L/NC. JAW THRUST PERFORMED ON UPPER NEEDED. THEN DURING COLONOSCOPY PT. AT 1538 HAD LONG PAUSES WHILE DR. EVANS WAS ADVANCING SCOPE, DR. EVANS NOTIFIED ROBSERENAUL .02MG IV WAS GIVEN PER DRJassi ORDER. THEN PT. AGAIN CONTINUED TO HAVE SOME PAUSES & BRADYCARDIA WHILE DR. EVANS WOULD ADVANCE THE SCOPE. DR. EVANS WOULD STOP ADVANCING THE SCOPE WHEN THIS WOULD HAPPEN. DR. MCFARLAND THEN IN THE ROOM APPROX. 1545 & SHE HAD ORDER ANOTHER DOSE OF 0.2MG IV ROBINUL WHICH WAS GIVEN PER HER ORDER SEE ENDO MAR. WAS ABLE THEN TO CONTINUE COLONOSCOPY WITHOUT FURTHER PAUSES & BRADYCARDIA. PT. WAS ALSO CHANGED TO POM MASK 10L BEFORE COLONOSCOPY WAS STARTED. PT. HAS COPD.
== END 2024-12-18 16:48 | disposition home or self-care (01) ==
LOC: ORSCSDS 12:28
PROVIDERS: Internal Medicine Gastroenterology
PROC: 0DB68ZX Excision of Stomach, Via Natural or Artificial Opening Endoscopic, Diagnostic (ICD-10-PCS; principal; 2024-12-18 14:00)
PROC: 0DB98ZX Excision of Duodenum, Via Natural or Artificial Opening Endoscopic, Diagnostic (ICD-10-PCS; principal; 2024-12-18 14:00)
PROC: 0DBN8ZX Excision of Sigmoid Colon, Via Natural or Artificial Opening Endoscopic, Diagnostic (ICD-10-PCS; principal; 2024-12-18 14:00)
DX: D50.9 Iron deficiency anemia, unspecified (principal); R19.4 Change in bowel habit; K21.9 Gastro-esophageal reflux disease without esophagitis; K63.5 Polyp of colon; J44.9 Chronic obstructive pulmonary disease, unspecified; K44.9 Diaphragmatic hernia without obstruction or gangrene; Z87.891 Personal history of nicotine dependence; Z79.899 Other long term (current) drug therapy
CPT/HCPCS: 88305; 88342; J2704; J7120

== ENCOUNTER → 2025-01-27 | Outpatient (CLI) | payer MEDICARE, OTHER ==
[~2025-01-27] MED LIST changes: -Lactated Ringer's 1,000 ML IV ONE; +OMEPRAZOLE MAGN20 MG; +QVAR REDIHALE10.6 G3; -propofoL 50 ML IV ONE
== END | disposition home or self-care (01) ==
LOC: LAB SHORT 19:47 → LAB 19:47
DX: N39.0 Urinary tract infection, site not specified (principal); R31.9 Hematuria, unspecified
CPT/HCPCS: 87086

== ENCOUNTER → 2025-01-27 | Outpatient (CLI) | payer MEDICARE, OTHER ==
[2025-01-27 16:31] LABS: Albumin, Blood 2.9 g/dL (3.4-5.0); Albumin/Globulin Ratio 0.7 (0.8-1.8); Bilirubin, Total 0.3 mg/dL (0.1-1.0); Bun/Creatinine Ratio 20.2 (12.0-20.0); Calcium, Blood 9.9 mg/dL (8.5-10.1); Creatinine, Blood 0.89 mg/dL (0.40-1.00); Globulin, Blood 3.9 g/dL (2.2-4.0); Potassium, Blood 3.7 mmol/L (3.5-5.5); Total Protein, Blood 6.8 g/dL (6.4-8.2)
== END ==
LOC: LAB 16:16 → LAB SHORT 16:16
PROVIDERS: Family Medicine
DX: M25.50 Pain in unspecified joint (principal); N39.0 Urinary tract infection, site not specified; R31.9 Hematuria, unspecified
CPT/HCPCS: 80053; 85651

== ENCOUNTER → 2025-02-10 | Outpatient (CLI) | payer MEDICARE, OTHER | LOC: LAB SHORT 18:18 → LAB 18:18 | DX: N39.0 Urinary tract infection, site not specified (principal) | CPT/HCPCS: 87077; 87086; 87186 ==

== ENCOUNTER → 2025-05-24 | Outpatient (CLI) | payer MEDICARE, OTHER | LOC: LAB 18:07 → LAB SHORT 18:07 | DX: N39.0 Urinary tract infection, site not specified (principal) | CPT/HCPCS: 87077; 87086; 87186 ==